=== PATIENT | male | born 1995 | race Hispanic/Latino ===

== ENCOUNTER 2025-03-25 14:18 | Emergency (ER) | payer OTHER ==
[~2025-03-25] VITALS: Ht 165.1 cm; Wt 86.4 kg
[2025-03-25] MEDS ORDERED: PRED5TA PO (14:40)
[2025-03-25] MEDS ORDERED: IBUP80TA PO (19:30)
[2025-03-25] MEDS: KETOROLAC 30 MG/ML 1 ML VIAL IM ONE (19:34)
[2025-03-25 19:48] VITALS: BP 128/65; TEMP 98.5; O2SAT 97
== END 2025-03-25 20:04 | disposition home or self-care (01) ==
LOC: M ED 14:18
DX: S83.411A Sprain of medial collateral ligament of right knee, initial encounter (principal); X50.0XXA Overexertion from strenuous movement or load, initial encounter; M72.2 Plantar fascial fibromatosis; Z79.1 Long term (current) use of non-steroidal anti-inflammatories (NSAID); Z79.52 Long term (current) use of systemic steroids; Z91.048 Other nonmedicinal substance allergy status; Y92.9 Unspecified place or not applicable; Y93.89 Activity, other specified; Y99.9 Unspecified external cause status
CPT/HCPCS: 73564; 73590; 96372; 99284; J1885

== ENCOUNTER → 2025-04-08 | Outpatient (CLI) | payer OTHER ==
[~2025-04-08] MED LIST: IBUP80TA PO; PRED5TA PO
== END ==
LOC: M RAD 12:53
DX: M25.561 Pain in right knee (principal); S83.241A Other tear of medial meniscus, current injury, right knee, initial encounter; X58.XXXA Exposure to other specified factors, initial encounter; Y92.9 Unspecified place or not applicable; Y93.9 Activity, unspecified; Y99.9 Unspecified external cause status; M25.461 Effusion, right knee; S83.411A Sprain of medial collateral ligament of right knee, initial encounter; S83.511A Sprain of anterior cruciate ligament of right knee, initial encounter; S83.521A Sprain of posterior cruciate ligament of right knee, initial encounter